=== PATIENT | female | born 1935 | race Hispanic/Latino ===

== ENCOUNTER 2024-01-10 | Inpatient (IN) | payer OTHER | END 2024-01-16 18:30 | DRG 956 | PROVIDERS: ADMIT Specialist | PROC: 0SRS0J9 Replacement of Left Hip Joint, Femoral Surface with Synthetic Substitute, Cemented, Open Approach (ICD-10-PCS; principal; 2024-01-11) | PROC: 0PSNXZZ Reposition Left Carpal, External Approach (ICD-10-PCS; 2024-01-11) | DX: S72.012A Unspecified intracapsular fracture of left femur, initial encounter for closed fracture (principal); S32.19XA Other fracture of sacrum, initial encounter for closed fracture; E43 Unspecified severe protein-calorie malnutrition; S32.511A Fracture of superior rim of right pubis, initial encounter for closed fracture; S32.810A Multiple fractures of pelvis with stable disruption of pelvic ring, initial encounter for closed fracture; Z68.1 Body mass index [BMI] 19.9 or less, adult; R64 Cachexia; D62 Acute posthemorrhagic anemia; R91.1 Solitary pulmonary nodule; N32.3 Diverticulum of bladder; I49.5 Sick sinus syndrome; I25.10 Atherosclerotic heart disease of native coronary artery without angina pectoris; E78.5 Hyperlipidemia, unspecified; E11.9 Type 2 diabetes mellitus without complications; K21.9 Gastro-esophageal reflux disease without esophagitis; W19.XXXA Unspecified fall, initial encounter; R77.8 Other specified abnormalities of plasma proteins; S62.002A Unspecified fracture of navicular [scaphoid] bone of left wrist, initial encounter for closed fracture; S63.260A Dislocation of metacarpophalangeal joint of right index finger, initial encounter; Z88.5 Allergy status to narcotic agent; Z88.8 Allergy status to other drugs, medicaments and biological substances; Z79.899 Other long term (current) drug therapy; Z79.82 Long term (current) use of aspirin; Z90.710 Acquired absence of both cervix and uterus; Z90.49 Acquired absence of other specified parts of digestive tract; Z86.73 Personal history of transient ischemic attack (TIA), and cerebral infarction without residual deficits; Z98.890 Other specified postprocedural states; Z95.0 Presence of cardiac pacemaker; S72.045A Nondisplaced fracture of base of neck of left femur, initial encounter for closed fracture; S63.210A Subluxation of metacarpophalangeal joint of right index finger, initial encounter; I11.0 Hypertensive heart disease with heart failure; Z55.6 Problems related to health literacy; W18.30XA Fall on same level, unspecified, initial encounter ==